=== PATIENT | female | born 1955 | race Caucasian/White ===

== ENCOUNTER → 2017-03-12 | Outpatient (CLI) | payer OTHER ==
[~2017-03-12] MED LIST: ASPI-650 PO; CALC1CAP8 PO; DEXL60CA PO; ESOM40CA PO; HYDR-3240 PO; IBAN150T PO; KRIL1CAP PO; LACT1CAP35 PO; METF500T4 PO; OXYC-302 PO; SIMV20TA3 PO
== END | disposition home or self-care (01) ==
LOC: CFH 09:11
PROVIDERS: ATTEND Urology
DX: C64.9 Malignant neoplasm of unspecified kidney, except renal pelvis (principal); N28.1 Cyst of kidney, acquired; K76.0 Fatty (change of) liver, not elsewhere classified; M47.894 Other spondylosis, thoracic region
CPT/HCPCS: 71020; 76770

== ENCOUNTER → 2017-04-02 | Outpatient (CLI) | payer OTHER | END | disposition home or self-care (01) | LOC: CFH 08:18 | PROVIDERS: ATTEND Family Medicine | DX: Z13.820 Encounter for screening for osteoporosis (principal); M81.0 Age-related osteoporosis without current pathological fracture | CPT/HCPCS: 77080 ==

== ENCOUNTER → 2017-09-17 | Outpatient (CLI) | payer OTHER ==
[~2017-09-17] MED LIST changes: -DEXL60CA PO; +DEXL60CA2 PO
== END | disposition home or self-care (01) ==
LOC: CFH 08:13
PROVIDERS: ATTEND Urology
DX: N28.1 Cyst of kidney, acquired (principal); J98.4 Other disorders of lung
CPT/HCPCS: 71020; 76770

== ENCOUNTER → 2017-10-08 | Outpatient (CLI) | payer OTHER | END | disposition home or self-care (01) | LOC: CFH 08:45 | PROVIDERS: ATTEND Family Medicine | DX: Z12.31 Encounter for screening mammogram for malignant neoplasm of breast (principal) | CPT/HCPCS: 77063; G0202 ==

== ENCOUNTER → 2018-04-09 | Outpatient (CLI) | payer OTHER | END | disposition home or self-care (01) | LOC: CFH 07:58 | PROVIDERS: ATTEND Urology | DX: N28.1 Cyst of kidney, acquired (principal); C64.1 Malignant neoplasm of right kidney, except renal pelvis; Z90.5 Acquired absence of kidney | CPT/HCPCS: 71046; 76770 ==

== ENCOUNTER → 2018-10-10 | Outpatient (CLI) | payer OTHER ==
[~2018-10-10] MED LIST changes: +METF500T17 PO; -METF500T4 PO
== END | disposition home or self-care (01) ==
LOC: CFH 07:33
PROVIDERS: ATTEND Family Medicine
DX: Z12.31 Encounter for screening mammogram for malignant neoplasm of breast (principal)
CPT/HCPCS: 77067

== ENCOUNTER 2019-03-31 07:55 | Outpatient (CLI) | payer OTHER ==
[~2019-03-31 07:55] MED LIST changes: -IBAN150T PO; +IBAN150T15 PO
== END 2019-03-31 23:59 | disposition home or self-care (01) ==
LOC: CFH 07:55
PROVIDERS: ATTEND Urology
DX: C64.9 Malignant neoplasm of unspecified kidney, except renal pelvis (principal); N28.1 Cyst of kidney, acquired
CPT/HCPCS: 71046; 76770

== ENCOUNTER 2019-10-15 11:02 | Outpatient (CLI) ==
[~2019-10-15 11:02] MED LIST changes: -KRIL1CAP PO; +KRIL1CAP7 PO
== END 2019-10-15 23:59 | disposition home or self-care (01) ==
LOC: CFH 11:02
PROVIDERS: ATTEND Internal Medicine
DX: Z02.9 Encounter for administrative examinations, unspecified (principal)

== ENCOUNTER 2019-10-21 10:58 | Outpatient (CLI) | payer OTHER | END 2019-10-21 23:59 | disposition home or self-care (01) | LOC: CFH 10:58 | PROVIDERS: ATTEND Family Medicine | DX: Z12.31 Encounter for screening mammogram for malignant neoplasm of breast (principal) | CPT/HCPCS: 77067 ==

== ENCOUNTER 2019-12-30 04:52 | Emergency (ER) | payer OTHER ==
[~2019-12-30] VITALS: Ht 149.9 cm; Wt 60.1 kg
[~2019-12-30 04:52] MED LIST changes: +SIMV20TA19 PO; -SIMV20TA3 PO
[2019-12-30 04:54] VITALS: BP 131/76
--- NOTE | 2019-12-30 05:08 | NUR ---
PT IN [facility] IN [facility]. DR GARRETT AT FOR PT HISTORY AND ASSESSMENT.
[2019-12-30] MEDS ORDERED: ONDANSETRON ODT 4 MG ONE (05:26)
[2019-12-30] MEDS ORDERED: HYDROcodone/APAP 5/325 TABLET ONE (05:26)
[2019-12-30] MEDS ORDERED: HYDROcodone/APAP 5/325 TABLET PO ONE (05:30)
[2019-12-30] MEDS ORDERED: ONDANSETRON ODT 4 MG PO ONE (05:30)
--- NOTE | 2019-12-30 06:21 | NUR ---
PT D/C WITH D/C SUMMARY AND SCRIPTS. ALL QUESTIONS ANSWERED. PT DENIES ANY OTHER NEEDS PERTAINING TO THIS VISIT. PT AMBULATES TO REGISTRATION DESK WITH STEADY GAIT FOR D/C HOME WITH . CONTROLLED SUBSTANCE FORM SIGNED BY PT AND PLACED WITH PT CHART
== END 2019-12-30 06:24 | disposition home or self-care (01) ==
LOC: ED 05:26
DX: B02.9 Zoster without complications (principal); I10 Essential (primary) hypertension
CPT/HCPCS: 99283; Q0162

== ENCOUNTER → 2020-10-26 | Outpatient (CLI) | payer OTHER | END | disposition home or self-care (01) | LOC: CFH 12:45 | PROVIDERS: ATTEND Family Medicine | DX: Z12.31 Encounter for screening mammogram for malignant neoplasm of breast (principal) | CPT/HCPCS: 77063; 77067 ==

== ENCOUNTER 2021-06-29 16:02 | Emergency (ER) | payer OTHER ==
[~2021-06-29] VITALS: Ht 149.9 cm; Wt 58.0 kg
[~2021-06-29 16:02] MED LIST changes: +ASPI-1026 PO; -ASPI-650 PO; +HYDR-2214 PO; -HYDR-3240 PO; -OXYC-302 PO; +OXYC1TAB14 PO
[2021-06-29 16:42] VITALS: BP 104/68
== END 2021-06-29 18:32 | disposition left against medical advice (07) ==
LOC: ED 18:00
DX: R19.7 Diarrhea, unspecified (principal); R10.30 Lower abdominal pain, unspecified; Z53.21 Procedure and treatment not carried out due to patient leaving prior to being seen by health care provider